=== PATIENT | female | born 1950 | race Caucasian/White ===

== ENCOUNTER 2021-12-28 10:49 | Emergency (ER) | payer MEDICARE, OTHER ==
[2021-12-28] MEDS ORDERED: Lidocaine 2% 20 ml MDV ONE (11:14)
[2021-12-28] MEDS ORDERED: Bacitracin 1 PK ONE (12:01)
[2021-12-28] MEDS ORDERED: Boostrix 0.5 ML (Tdap) VIAL ONE (12:13)
== END 2021-12-28 12:34 | disposition home or self-care (01) ==
LOC: MADERS 10:49
DX: S61.213A Laceration without foreign body of left middle finger without damage to nail, initial encounter (principal); W26.8XXA Contact with other sharp object(s), not elsewhere classified, initial encounter; Z23 Encounter for immunization
CPT/HCPCS: 12002; 90471; 90715

== ENCOUNTER 2022-01-07 09:08 | Emergency (ER) | payer MEDICARE, OTHER | END 2022-01-07 09:43 | disposition home or self-care (01) | LOC: MADERS 09:08 | DX: S61.213D Laceration without foreign body of left middle finger without damage to nail, subsequent encounter (principal); W26.8XXD Contact with other sharp object(s), not elsewhere classified, subsequent encounter ==

== ENCOUNTER 2024-05-11 04:38 | Emergency (ER) | payer MEDICARE, OTHER ==
[2024-05-11 05:49] LABS: #Lymphocytes 1.3 thou/uL (1.20-3.40); #Monocytes 0.5 thou/uL (0.11-0.59); %Basophils 0.7 % (0.0-1.0); %Eosinophils 0.9 % (0.0-10.0); %Lymphocytes 27.1 % (21.0-51.0); %Neutrophils 61.2 % (42.0-75.0); Hematocrit 46.6 % (36.0-47.0); Hemoglobin 14.7 g/dL (12.0-16.0); Mean Corpuscular HGB CONC 31.6 g/dL (32.0-36.0); Mean Corpuscular Hemoglobin 29.7 pg (27.0-31.0); Mean Corpuscular Volume 93.9 fl (78.0-98.0); Platelet Count 163 10x3/uL (130-400); RBC Distribution Width 11.5 % (11.5-14.5); Red Blood Cell (RBC) Count 4.97 mill/uL (4.20-5.40); White Blood Cell (WBC) Count 4.9 10x3/uL (4.8-10.8)
[2024-05-11 06:07] LABS: ALT (SGPT) 13 U/L (8-55); AST (SGOT) 15 U/L (5-34); Albumin 3.8 g/dL (3.4-4.8); Alkaline Phosphatase 88 U/L (40-110); Anion Gap 14 mmol/L (10-20); BUN (Urea Nitrogen) 16 mg/dL (9.8-20.1); Bilirubin, Total 0.4 mg/dL (0.2-1.2); Calc. Creatinine Clearance 0 mL/min (70-130); Calcium 9.7 mg/dL (7.8-10.44); Carbon Dioxide 26 mmol/L (23-31); Chloride 107 mmol/L (98-107); Estimated GFR 81; Globulin 3.4 g/dL (2.4-3.5); Glucose 109 mg/dL (83-110); Potassium 4.2 mmol/L (3.5-5.1); Protein, Total 7.2 g/dL (5.8-8.1); Sodium 143 mmol/L (136-145)
[2024-05-11 07:04] LABS: Troponin I Less than 0.010 ng/mL (< 0.028)
== END 2024-05-11 07:12 | disposition home or self-care (01) ==
LOC: MADERS 04:38
DX: L29.9 Pruritus, unspecified (principal); I44.7 Left bundle-branch block, unspecified; M19.011 Primary osteoarthritis, right shoulder; R00.1 Bradycardia, unspecified
CPT/HCPCS: 36415; 80053; 84484; 85025; 93005; 99284